=== PATIENT | female | born 1950 | race Caucasian/White ===

== ENCOUNTER 2022-01-22 22:47 | Observation (INO) ==
[2022-01-22 23:38] LABS: Basophils # 0.1 K/mcL (0.0-0.2); Basophils % 0.4 %; Eosinophils # 0.1 K/mcL (0.0-0.6); Eosinophils % 0.3 %; Hematocrit 39.9 % (35.3-44.9); Hemoglobin 14.4 g/dL (11.5-15.4); Immature Granulocytes % 0.5 % (0-4); Lymphocytes # 1.6 K/mcL (0.6-4.6); Lymphocytes % 9.6 %; Mean Corpuscular HGB Conc 36.1 g/dL (31.6-35.5); Mean Corpuscular Hemoglobin 32.7 pg (28.0-33.3); Mean Corpuscular Volume 90.5 fL (83.0-100.0); Mean Platelet Volume 9.3 fL (9.4-12.4); Monocytes % 5.8 %; Neutrophils # 13.7 K/mcL (1.6-8.9); Platelet Count 264 K/mcL (140-400); Red Blood Count 4.41 M/mcL (3.82-4.97); Red Cell Distribution Width 11.8 % (11.5-14.5); Segmented Neutrophils % 83.4 %; White Blood Count 16.4 K/mcL (4.3-11.1)
[2022-01-22 23:44] LABS: Albumin 4.4 g/dL (3.5-5.7); Albumin/Globulin Ratio 1.6 (1.1-2.2); Bilirubin,Direct 0.1 mg/dL (0.0-0.2); Bilirubin,Indirect 0.4 mg/dL (0.0-1.0); Bilirubin,Total 0.5 mg/dL (0.3-1.0); Calcium 9.6 mg/dL (8.6-10.3); Globulin 2.8 g/dL (2.4-3.5); Potassium 4.2 mEq/L (3.5-5.1); Total Protein 7.2 g/dL (6.4-8.9)
[2022-01-22] MEDS ORDERED: Morphine Sulfate 2 MG/ML SYRINGE IVP ONE (23:48)
[2022-01-22] MEDS ORDERED: Ondansetron 4 MG/2 ML VIAL IVP ONE (23:48)
[2022-01-22] MEDS ORDERED: 0.9 % Sodium Chloride 1,000 ML IV ONE (23:48)
[2022-01-22 23:53] LABS: Bilirubin,Urine Negative (Negative); Blood,Urine Moderate (Negative); Clarity,Urine Clear (Clear); Color,Urine Light-Yellow (Yellow); Glucose,Urine (UA) 30 mg/dL (Normal); Ketones,Urine Negative (Negative); Leukocyte Esterase,Urine Moderate (Negative); Mucus,Urine Few per lpf (None-Few); Nitrite,Urine Negative (Negative); PH,Urine 5.5 pH Units (5.0-8.0); Protein,Urine Negative (Neg-Trace); RBC,Urine 15-30 per hpf (0-3); Specific Gravity,Urine 1.026 (1.010-1.025); Squamous Epithelial Cell,Urine Moderate per hpf (None-Few); Urobilinogen,Urine Normal (Normal)
[2022-01-23] MEDS ORDERED: cefTRIAXone 1,000 MG in Water for inj. (sterile) 10 ML IVP ONE (01:09)
[2022-01-23] MEDS ORDERED: *HR* FentaNYL (PF) 100 MCG/2 ML VIAL IVP ONE (01:26)
[2022-01-23] MEDS ORDERED: Acetaminophen 325 MG TABLET PO PRN ×2 (01:40→16:22)
[2022-01-23] MEDS ORDERED: *HR* OxyCODONE Immed Rel 5 MG TABLET PO PRN ×2 (01:40→16:22)
[2022-01-23] MEDS ORDERED: Melatonin 3 MG TABLET PO PRN ×2 (01:40→16:22)
[2022-01-23] MEDS ORDERED: *HR* HYDROcodone/Acet 5/325 mg TABLET PO PRN ×2 (01:40→16:22)
[2022-01-23] MEDS ORDERED: Naloxone 0.4 MG/ML INJ IVP PRN ×2 (01:40→16:22)
[2022-01-23] MEDS ORDERED: Ondansetron 4 MG/2 ML VIAL IVP PRN ×2 (01:40→16:22)
[2022-01-23 06:02] LABS: Basophils % 0.3 %; Eosinophils # 0.1 K/mcL (0.0-0.6); Eosinophils % 0.7 %; Hematocrit 36.2 % (35.3-44.9); Immature Granulocytes % 0.4 % (0-4); Lymphocytes # 2.4 K/mcL (0.6-4.6); Lymphocytes % 19.7 %; Mean Corpuscular HGB Conc 34.8 g/dL (31.6-35.5); Mean Corpuscular Hemoglobin 31.9 pg (28.0-33.3); Mean Corpuscular Volume 91.6 fL (83.0-100.0); Mean Platelet Volume 9.1 fL (9.4-12.4); Monocytes % 8.2 %; Neutrophils # 8.6 K/mcL (1.6-8.9); Platelet Count 201 K/mcL (140-400); Red Blood Count 3.95 M/mcL (3.82-4.97); Red Cell Distribution Width 11.8 % (11.5-14.5); Segmented Neutrophils % 70.7 %; White Blood Count 12.2 K/mcL (4.3-11.1)
[2022-01-23 06:03] LABS: Hemoglobin 12.6 g/dL (11.5-15.4)
[2022-01-23 06:09] LABS: INR 1.2; Prothrombin Time 12.9 Seconds (9.4-12.1)
[2022-01-23 06:11] LABS: Activated Partial Thrombo Time 30.6 Seconds (26.0-36.0)
[2022-01-23] MEDS ORDERED: *HR* Dextrose 50 % in Water (Syg) 50 ML SYRINGE IVP PRN ×2 (06:17→16:22)
[2022-01-23] MEDS ORDERED: Dextrose Gel 15 GM/37.5 ML TUBE PO PRN ×4 (06:17→16:22)
[2022-01-23] MEDS ORDERED: D5% in Water 1,000 ML IVC PRN ×2 (06:17→16:22)
[2022-01-23] MEDS ORDERED: Saliva Stimulant 44.3ml BOTTLE PO PRN ×2 (06:21→16:22)
[2022-01-23 06:22] LABS: Albumin 3.8 g/dL (3.5-5.7); Albumin/Globulin Ratio 1.6 (1.1-2.2); Bilirubin,Total 0.5 mg/dL (0.3-1.0); Globulin 2.4 g/dL (2.4-3.5); Magnesium 1.3 mg/dL (1.6-2.6); Phosphorous 4.2 mg/dL (2.7-4.5); Potassium 3.7 mEq/L (3.5-5.1); Total Protein 6.2 g/dL (6.4-8.9)
[2022-01-23] MEDS: Ringers Solution, Lactated 1,000 ML IVC SCH ×4 (06:26→19:49)
[2022-01-23] MEDS: Insulin LISPRO 300 UNITS/3 ML VIAL SUBQ SCH ×3 (08:11→17:38)
[2022-01-23] MEDS ORDERED: Lactobacillus 1 EACH CAP.SPRINK PO SCH (09:00)
[2022-01-23] MEDS ORDERED: Lidocaine -MPF 2% 5 ML VIAL ONE (15:26)
[2022-01-23] MEDS ORDERED: *HR* FentaNYL (PF) 100 MCG/2 ML VIAL ONE (15:26)
[2022-01-23] MEDS ORDERED: Ondansetron 4 MG/2 ML VIAL ONE (15:26)
[2022-01-23] MEDS ORDERED: *HR* Propofol 200 MG/20 ML VIAL IVP ONE (15:26)
[2022-01-23] MEDS: Lactobacillus 1 EACH CAP.SPRINK PO SCH (19:56)
[2022-01-24 01:56] LABS: Basophils % 0.1 %; Hematocrit 36.7 % (35.3-44.9); Hemoglobin 12.7 g/dL (11.5-15.4); Immature Granulocytes % 0.7 % (0-4); Lymphocytes # 0.6 K/mcL (0.6-4.6); Lymphocytes % 8.2 %; Mean Corpuscular HGB Conc 34.6 g/dL (31.6-35.5); Mean Corpuscular Volume 92.4 fL (83.0-100.0); Mean Platelet Volume 9.4 fL (9.4-12.4); Monocytes # 0.1 K/mcL (0.0-1.3); Monocytes % 1.4 %; Neutrophils # 6.2 K/mcL (1.6-8.9); Platelet Count 210 K/mcL (140-400); Red Blood Count 3.97 M/mcL (3.82-4.97); Red Cell Distribution Width 11.7 % (11.5-14.5); Segmented Neutrophils % 89.6 %
[2022-01-24 02:13] LABS: Calcium 9.2 mg/dL (8.6-10.3); Potassium 4.5 mEq/L (3.5-5.1)
[2022-01-24 04:36] VITALS: BP 159/89; PULSE 92; TEMP 97.7; O2SAT 95
[2022-01-24] MEDS: Lactobacillus 1 EACH CAP.SPRINK PO SCH (08:44)
[2022-01-24] MEDS: Insulin LISPRO 300 UNITS/3 ML VIAL SUBQ SCH (08:45)
[2022-01-24] MEDS ORDERED: cefTRIAXone 1,000 MG in 0.9 % Sodium Chloride Mini Bag 100 ML IVPB SCH ×2 (21:00)
== END 2022-01-24 10:05 | disposition home or self-care (01) ==
LOC: EMEROOARM 22:47 → 3NENU 22:47 → SUATTDRO 01-23 05:13 → 3NENU 01-23 06:00
PROVIDERS: ADMIT Internal Medicine; ATTEND Internal Medicine